=== PATIENT | female | born 2000 | race Caucasian/White ===

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

== ENCOUNTER 2020-01-23 10:26 | Outpatient (CLI) | payer OTHER ==
[~2020-01-23 10:26] MED LIST: SYNTHROID50 MCG
== END 2020-01-23 10:35 | disposition home or self-care (01) ==
LOC: SONOGRAMA 10:26
PROVIDERS: ATTEND Pathology Anatomic Pathology & Clinical Pathology
DX: E04.1 Nontoxic single thyroid nodule (principal)